=== PATIENT | female | born 1965 | race Caucasian/White ===

== ENCOUNTER 2016-09-14 13:50 | Emergency (ER) | payer MEDICAID ==
[~2016-09-14] VITALS: Ht 154.9 cm; Wt 63.6 kg
[~2016-09-14 13:50] MED LIST: ATOR20TA86 PO
[2016-09-14] MEDS ORDERED: ACET-327 PO (14:43)
[2016-09-14 16:49] VITALS: BP 128/80
[2016-09-14] MEDS ORDERED: KETOROLAC TROMETHAMINE 60 MG/2 ML VIAL IM ONE (17:00)
[2016-09-14] MEDS ORDERED: AMOX TR/POT CLAV 875 MG/125 MG TABLET PO ONE (17:00)
[2016-09-14] MEDS ORDERED: HYDROCODONE/ACETAMINOPHEN 5-325 MG TABLET PO ONE (17:00)
== END 2016-09-14 17:14 | disposition home or self-care (01) ==
LOC: EMS 13:52
DX: K04.7 Periapical abscess without sinus (principal); E78.00 Pure hypercholesterolemia, unspecified; G43.909 Migraine, unspecified, not intractable, without status migrainosus
CPT/HCPCS: 96372; 99283; J1885

== ENCOUNTER 2017-09-16 21:58 | Emergency (ER) | payer SELFPAY ==
[~2017-09-16] VITALS: Ht 162.6 cm; Wt 65.9 kg
[~2017-09-16 21:58] MED LIST changes: +ACET-327 PO
[2017-09-17] MEDS ORDERED: IBUPROFEN 600 MG TABLET PO ONE (03:15)
[2017-09-17 03:35] VITALS: BP 111/82
== END 2017-09-17 03:35 | disposition home or self-care (01) ==
LOC: EMS 21:59
DX: M70.871 Other soft tissue disorders related to use, overuse and pressure, right ankle and foot (principal); M70.872 Other soft tissue disorders related to use, overuse and pressure, left ankle and foot; E78.00 Pure hypercholesterolemia, unspecified; Y93.01 Activity, walking, marching and hiking
CPT/HCPCS: 99283

== ENCOUNTER 2022-03-07 09:02 | Emergency (ER) | payer MEDICAID ==
[~2022-03-07] VITALS: Ht 147.3 cm; Wt 75.0 kg
[2022-03-07 09:07] VITALS: BP 151/92
[2022-03-07] MEDS ORDERED: ACETAMINOPHEN 500 MG TABLET PO ONE (09:30)
[2022-03-07] MEDS ORDERED: KETOROLAC TROMETHAMINE 30 MG/ML VIAL IM ONE (09:30)
[2022-03-07] MEDS ORDERED: LIDOCAINE 5% TRANSDERMAL PATCH TD ONE (09:30)
[2022-03-07] MEDS ORDERED: LIDO700A15 TP (10:55)
[2022-03-07] MEDS ORDERED: IBUP-1492 PO (10:55)
[2022-03-07] MEDS ORDERED: ACET-66 PO (10:55)
== END 2022-03-07 11:03 | disposition home or self-care (01) ==
LOC: EMS 09:06
DX: M54.31 Sciatica, right side (principal); E78.00 Pure hypercholesterolemia, unspecified; G43.909 Migraine, unspecified, not intractable, without status migrainosus
CPT/HCPCS: 99283; 96372; J1885

== ENCOUNTER 2023-11-04 00:48 | Emergency (ER) | payer MEDICAID ==
[~2023-11-04] VITALS: Ht 152.4 cm; Wt 76.4 kg
[~2023-11-04 00:48] MED LIST changes: +ACET-66 PO; +ATOR20TA PO; -ATOR20TA86 PO; +IBUP-1492 PO; +LIDO700A15 TP
[2023-11-04 02:34] LABS: BASOPHILS % (AUTO) 0.9 % (0.0-2.0); EOSINOPHILS % (AUTO) 0.6 % (1.0-6.0); HEMATOCRIT 34.8 % (36-46); HEMOGLOBIN 10.7 g/dL (12.0-16.0); LYMPHOCYTES # (AUTO) 3.2 K/uL (1.0-4.8); LYMPHOCYTES % (AUTO) 20.3 % (22.0-44.0); MEAN CORPUSCULAR HEMOGLOBIN 24.4 pg (26.0-34.0); MEAN CORPUSCULAR HGB CONC 30.9 G/dL (31.0-37.0); MEAN CORPUSCULAR VOLUME 79 fL (80-100); MONOCYTES # (AUTO) 0.9 K/uL (0.1-1.0); MONOCYTES % (AUTO) 5.5 % (2.0-9.0); NEUTROPHILS # (AUTO) 11.7 K/uL (1.8-7.7); NEUTROPHILS % (AUTO) 72.7 % (40.0-70.0); PLATELET COUNT (AUTO) 423 K/uL (150-450); RED BLOOD CELL COUNT(AUTO) 4.41 MIL/uL (4.00-5.20); RED CELL DISTRIBUTION WIDTH 18.6 % (11.5-14.5)
[2023-11-04 02:36] LABS: ANION GAP 10 mmol/L (8-16); CALCIUM, TOTAL 8.7 mg/dL (8.8-10.5); CARBON DIOXIDE 29 mmol/L (22-29); CHLORIDE 103 mmol/L (98-107); CREATININE 0.69 mg/dL (0.60-1.30); GLOMERULAR FILTR. RATE CALC > 60 mL/min (>60); GLUCOSE,RANDOM 130 mg/dL (70-110); POTASSIUM 3.4 mmol/L (3.5-5.1); SODIUM SERUM 142 mmol/L (136-145); UREA NITROGEN, BLOOD 15 mg/dL (7-18)
[2023-11-04 02:50] LABS: B-TYPE NATRIURETIC PEPTIDE 7 pg/mL (0-100)
[2023-11-04] MEDS: POTASSIUM CHLORIDE 20 MEQ ER TABLET PO ONE (03:09)
[2023-11-04] MEDS: DICLOFENAC SODIUM 1% 100 GM GEL [4GM] TP ONE (03:10)
[2023-11-04] MEDS: ACETAMINOPHEN 325 MG TABLET PO ONE (03:10)
[2023-11-04 04:12] LABS: APPEARANCE,URINE HAZY (CLEAR); BILIRUBIN,URINE NEGATIVE (NEGATIVE); COLOR,URINE YELLOW (YELLOW); GLUCOSE, URINE (UA) NEGATIVE (NEGATIVE); KETONES,URINE NEGATIVE (NEGATIVE); LEUKOCYTE ESTERASE ,URINE NEGATIVE (NEGATIVE); NITRATE,URINE NEGATIVE (NEGATIVE); OCCULT BLOOD,URINE TRACE (NEGATIVE); PROTEIN,URINE 30-70 mg/dL (NEGATIVE); SPECIFIC GRAVITIY, URINE 1.034 (1.003-1.030); UROBILINOGEN,URINE <=1.0 mg/dL (<=1.0)
[2023-11-04 04:28] LABS: BACTERIA,URINE None Seen /HPF (None Seen); RBC,URINE 0-2 /HPF (0-2); SQUAMOUS EPITHELIAL CELL,UR Few /LPF (None Seen); WBC,URINE None Seen /HPF (0-5)
[2023-11-04 05:30] VITALS: BP 129/83; PULSE 79; RESP 18; TEMP 97.9; O2SAT 99
== END 2023-11-04 06:34 | disposition home or self-care (01) ==
LOC: EMS 00:50
DX: R60.0 Localized edema (principal); M79.661 Pain in right lower leg; M79.662 Pain in left lower leg; E87.6 Hypokalemia; E78.5 Hyperlipidemia, unspecified
CPT/HCPCS: 80048; 81001; 83880; 85025; 99285